=== PATIENT | female | born 1960 | race Caucasian/White ===

== ENCOUNTER → 2017-09-24 | Emergency (ER) | payer BC ==
[~2017-09-24] VITALS: Ht 175.3 cm; Wt 145.1 kg
[~2017-09-24] MED LIST: DEXAMETHASONE SOD PHOS 10 MG/1 ML VIAL INJ ONE; FAMOTIDINE 20 MG TAB PO ONE
== END | disposition home or self-care (01) ==
LOC: ER 13:15
DX: L50.9 Urticaria, unspecified (principal); I10 Essential (primary) hypertension
CPT/HCPCS: 99282; J1100

== ENCOUNTER 2019-04-30 07:13 | Observation (INO) | payer BC ==
[~2019-04-30] VITALS: Ht 175.3 cm; Wt 137.4 kg
[~2019-04-30 07:13] MED LIST changes: +BACITRACIN 50,000 UNIT VIAL ONE; -DEXAMETHASONE SOD PHOS 10 MG/1 ML VIAL INJ ONE; -FAMOTIDINE 20 MG TAB PO ONE; +LEXAPRO10 MG PO; +NIFEDIPINE ER30 MG PO; +SODIUM CHLORIDE 0.9% 500ML 500 ML ONE; +TRANEXAMIC ACID 1,000 MG/10 ML ML ONE; +ULTRAM50 MG PO; +VANCOMYCIN HCL 1,000 MG ONE
--- OUTSIDE RECORDS SUMMARY | 2019-04-30 07:16 | XMS REPORT | Clinical Summary ---
Author Author [facility] Organization [facility] Address Unknown Phone Unavailable Care Team Providers Care Obstetrician/Gynecologist Name Role Phone Saúl Diaz MD PCP Allergies Not on File Medications Not on file Active Problems Not on file Encounters Care Team Description Date Type Specialty Liat Dominguez MD Screening breast examination 04/03/2019 Procedure visit Radiology Liat Dominguez MD Screening breast examination (Primary Dx) 03/19/2019 Transcribe Access Orders after 04/29/2018 Social History Date Tobacco Use Types Packs/Day Years Used Never Assessed Sex Assigned at Date Recorded Not on file Industry Job Start Date Occupation Not on file Not on file Not on file Travel End Travel History Travel Start No recent travel history available. Last Filed Vital Signs Not on file Plan of Treatment Health Maintenance Due Date Last Done Comments COLONOSCOPY SCREENING 2011 SHINGLES VACCINES (#1) 2011 INFLUENZA VACCINE 04/11/2019 BREAST CANCER SCREENING 04/03/2021 04/03/2019, 03/08/2018 Procedures Comments Procedure Name Priority Date/Time Associated Diagnosis MAMMO BREAST SCREEN Routine 04/03/2019 Screening breast TOMOSYNTHESIS BILATERAL 10:45 AM CDT examination after 04/29/2018 Results * Mammo Breast Screen Tomosynthesis Bilateral (04/03/2019 10:45 AM CDT) Specimen Narrative Performed At EXAMINATION:MAMMO BREAST SCREEN TOMOSYNTHESIS BILATERAL04/03/2019 [email or web address] Computer-assisted detection was utilized in the interpretation of this exam. COMPARISONS:02/28/2018 dating back to 10/28/2018 INDICATION:58 year-old female who presents for annual evaluation. FINDINGS: There is scattered fatty and fibroglandular tissue. There are no suspicious mammographic findings. IMPRESSION: No mammographic evidence of malignancy. In the absence of any clinical change, continued routine annual mammographic surveillance per ACR guidelines is recommended. BI-RADS Category 2: BENIGN. 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
[2019-04-30] MEDS ORDERED: CELECOXIB 200 MG CAP ONE (07:28)
[2019-04-30] MEDS ORDERED: GABAPENTIN 300 MG CAP ONE (07:29)
[2019-04-30] MEDS ORDERED: CEFAZOLIN SOD 1 GM/NS 50ML 100 ML IV ONE (07:29)
[2019-04-30] MEDS ORDERED: DEXAMETHASONE SOD PHOS 10 MG/1 ML VIAL ONE (07:29)
[2019-04-30] MEDS ORDERED: ROPIVACAINE 246.25 MG, EPINEPHRINE HCL 1:1000 1ML 0.5 MG, CLONIDINE HCL 0.08 MG, KETORO... INJ ONE ×5 (07:30)
[2019-04-30] MEDS ORDERED: DIPHENHYDRAMINE HCL INJ 50 MG/ML VIAL IM/IV PRN (11:30)
[2019-04-30] MEDS ORDERED: HYDROCODONE/APAP 7.5MG-325MG 1 EA TAB PO PRN (11:30)
[2019-04-30] MEDS ORDERED: HYDROCODONE/APAP 5MG-325MG TAB PO PRN (11:30)
[2019-04-30] MEDS ORDERED: ZOLPIDEM TARTRATE 5 MG TAB PO PRN (11:30)
[2019-04-30] MEDS ORDERED: PROMETHAZINE HCL (IM) 25 MG/ML VIAL INJ PRN (11:30)
[2019-04-30] MEDS ORDERED: DOCUSATE SODIUM 100 MG CAP PO PRN (11:30)
[2019-04-30] MEDS ORDERED: ACETAMINOPHEN 650 MG SUPP PR PRN (11:30)
[2019-04-30] MEDS ORDERED: KETOROLAC TROMETHAMINE 30 MG/ML VIAL IV PRN (11:30)
[2019-04-30] MEDS ORDERED: ONDANSETRON HCL INJ 2MG/ML 2ML 2 MG/ML VIAL IV PRN (11:30)
[2019-04-30] MEDS: ACETAMINOPHEN 1000 MG/100 ML IV SCH ×3 (12:00→23:15)
--- OUTSIDE RECORDS SUMMARY | 2019-04-30 12:09 | XMS REPORT | Clinical Summary ---
Author Author [facility] Organization [facility] Address Unknown Phone Unavailable Care Team Providers Care Assembler Garment Form Name Role Phone Saúl Diaz MD PCP [...] Performed At EXAMINATION:MAMMO BREAST SCREEN TOMOSYNTHESIS BILATERAL04/03/2019 [employer] Computer-assisted detection was utilized in the interpretation [...] Organization Address City/State/Zipcode Phone Number [facility] [address] [place] [address] after 04/29/2018 Insurance Type Payer Benefit Subscriber ID Effective Phone Address Plan / Dates Group PPO BCBS BCBS xxxxxxxxxxxx 2017-P CHOICE anetaent PPO/ALEX VILLANUEVA PPO Advance Directives For more information, please contact: [phone] 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
--- NOTE | 2019-04-30 13:03 | Diagnostic Imaging Report ---
Left knee, 2 views. History: Post op. Findings: Status post total left knee arthroplasty with prosthetic components in anatomic alignment. Overlying post-surgical air and skin laura are present. IMPRESSION: Status post left knee replacement in anatomic position. Signed by: Gil Olvera on 04/30/2019 12:59 PM
--- NOTE | 2019-04-30 13:06 | NUR ---
RECEIVED TO RM [id number] NO DISTRESS NOTED, UPDATED ON POC VOICED UNDERSTANDING, DENIES PAIN AT THIS TIME, L FA 20G , DSG TO LEFT KNEE C/D/I,NO OTHER CO VOICED CALL LIGHT IN REACH WILL CONTINUE TO MONITOR
[2019-04-30 13:13] VITALS: BP 121/62
[2019-04-30 13:20] VITALS: BP 141/63
[2019-04-30] MEDS ORDERED: ROPIVACAINE 0.5% 5 MG/ML 30 ML SDV ONE (14:01)
[2019-04-30] MEDS ORDERED: LIDOCAINE 2%/ EPINEPHRINE 20ML MDV ONE (14:01)
--- NOTE | 2019-04-30 14:13 | NUR ---
Pt sitting up in bed, voided in bed malcolm. PT at bedside.
--- NOTE | 2019-04-30 15:55 | NUR ---
DR GOODSON OFFICE PREARRANGED FOLLOWING DISCHARGE PLAN OF: HOME HEALTH WITH HOME CARE PROVIDERS [phone] CONFIRMED WITH [facility]. DME 3 IN ONE COMMODE. AND ROLLING WALKER WITH WHEELS. PROVIDED BY [employer] [phone] [facility] DELIVERED 04/30/2019
--- NOTE | 2019-04-30 16:10 | NUR ---
L FA 20G IV INFILTRATED REMOVED COVERED WITH 2X2 AND TAPE, L HAND 20G X 1 STICK TOLERATED WELL,
[2019-04-30 16:22] VITALS: BP 141/67
[2019-04-30] MEDS ORDERED: PROMETHAZINE 12.5MG/ NACL 0.9% 50 ML IV PRN (16:30)
[2019-04-30] MEDS ORDERED: CELECOXIB 200 MG CAP PO SCH (17:00)
[2019-04-30] MEDS: ASPIRIN 325 MG TAB PO SCH (17:34)
[2019-04-30] MEDS: CEFAZOLIN SOD 1 GM/NS 50ML 50 ML IV SCH (17:34)
[2019-04-30] MEDS: SODIUM CHLORIDE 0.9% 1000ML 1,000 ML IV SCH ×2 (17:34→21:16)
--- NOTE | 2019-04-30 17:36 | NUR ---
spoke with Dr. Bartholomew and informed him that the pt reported allergy to Celebrex. he ordered to d/c med; allergy reported on pt.
[2019-04-30] MEDS ORDERED: ACETAMINOPHEN 1000 MG/100 ML IV ONE (18:32)
[2019-04-30] MEDS ORDERED: PROPOFOL IV EMULSION 10 MG/ML 20 ML VIAL ONE (18:32)
[2019-04-30] MEDS ORDERED: ONDANSETRON HCL INJ 2MG/ML 2ML 2 MG/ML VIAL ONE (18:32)
[2019-04-30] MEDS ORDERED: LIDOCAINE HCL 2% LOCAL INJ 5 ML SDV VIAL INJ ONE (18:32)
[2019-04-30] MEDS ORDERED: SEVOFLURANE INHAL SOLN 250 ML PEN BTL ONE (18:32)
[2019-04-30] MEDS ORDERED: DEXAMETHASONE SOD PHOS INJ 4 MG/ML VIAL ONE (18:32)
[2019-04-30] MEDS ORDERED: FENTANYL CITRATE/PF 100MCG/2 ML INJ ONE (18:46)
[2019-04-30] MEDS ORDERED: MIDAZOLAM HCL 2 MG/2 ML VIAL ONE (18:46)
[2019-04-30] MEDS ORDERED: MORPHINE SULFATE INJ 10 MG/ML ONE (18:46)
[2019-04-30] MEDS ORDERED: KETAMINE HCL INJ 50 MG/ML 10 ML VIAL ONE (18:46)
--- NOTE | 2019-04-30 19:09 | NUR ---
report given to oncoming shift manager nurse. pt resting in bed, call light within reach, in stable condition.
--- NOTE | 2019-04-30 19:31 | NUR ---
Bed side shift report taken from morning staff Sharonda.patient is lyeing in the bed.left knee dressing dry.plexi pump is in place.stable condition.
[2019-04-30 20:00] VITALS: BP 156/71
--- NOTE | 2019-04-30 20:14 | NUR ---
Assessment done.no resp.distress.no pain voiced.tolerates the diet.voided.cpm applied @ flexion degree 40.tolerates.bed locked and in lowest position.phone and call light within reach.instructed to call for assistance as needed.
[2019-04-30 20:57] VITALS: BP 156/71
[2019-04-30] MEDS ORDERED: ESCITALOPRAM OXALATE 10 MG TAB PO SCH (21:00)
--- NOTE | 2019-04-30 22:18 | NUR ---
TOOK OFF CPM.PT TOLERATED WELL.
[2019-05-01] VITALS: BP 112/53
[2019-05-01] MEDS: CEFAZOLIN SOD 1 GM/NS 50ML 50 ML IV SCH ×2 (00:14→08:10)
--- NOTE | 2019-05-01 00:51 | NUR ---
Patient using own c pap and sleeping.bed in lowest position.phone and call light within reach.instructed to call for assistance as needed.
[2019-05-01 04:00] VITALS: BP 142/74
--- NOTE | 2019-05-01 04:46 | Consultation ---
DATE OF CONSULTATION: REASON FOR CONSULTATION: Postop medical management. HISTORY OF PRESENT ILLNESS: The patient is a 59-year-old lady, status post left knee arthroplasty for end-stage osteoarthritis. She is doing very well postoperatively with minimal pain in the left knee. She denies any chest pain, fever, chills, nausea, vomiting, headache, or shortness of breath. PAST MEDICAL HISTORY: Significant for hypertension, sleep apnea, and osteoarthritis. MEDICATIONS: See MAR. ALLERGIES: CODEINE AND CELEBREX. SOCIAL HISTORY: She is . Works full-time and she is positive cigarette abuser about a half pack per day and denies any alcohol use. FAMILY HISTORY: Unremarkable. PHYSICAL EXAMINATION: VITAL SIGNS: Temperature is 99.2, pulse 92, blood pressure 112/52, and sats 100% on room air. GENERAL: She is no apparent distress, lying in bed. NECK: Supple. No lymphadenopathy. LUNGS: Clear to auscultation bilaterally. CARDIOVASCULAR: Regular rate and rhythm. ABDOMEN: Good bowel sounds. Soft and nontender. EXTREMITIES: No clubbing or cyanosis. Left knee is bandaged with no seepage. NEUROLOGIC: Nonfocal. ASSESSMENT AND PLAN: 1. Status post left total knee arthroplasty. Continue with postoperative care. 2. Pain, continue with current care since her pain is minimal. 3. Sleep apnea. Continue with BiPAP. 4. Hypertension. Continue with her medication and monitor. 5. Anemia check a CBC. Please see hospital chart for full details. MD ARVIN Pearson/MOHINDER /[id number]
[2019-05-01] MEDS: ACETAMINOPHEN 1000 MG/100 ML IV SCH (05:32)
--- NOTE | 2019-05-01 06:30 | NUR ---
on cpm @ flexion degree 45.
[2019-05-01 06:46] LABS: HEMOGLOBIN 12.9 g/dL (12.0-16.0)
--- NOTE | 2019-05-01 07:00 | NUR ---
bedside report received pt in stable condition, denies pain at this time, cpm in place, dsg to left knee c/d/i, no other co voiced call light in reach will continue to monitor
--- NOTE | 2019-05-01 07:10 | NUR ---
Bed side shift report given to the oncoming rn.walking rounds done.
[2019-05-01 07:21] VITALS: BP 150/70
[2019-05-01 08:16] VITALS: BP 150/70
--- NOTE | 2019-05-01 08:17 | Operative Report ---
DATE OF PROCEDURE: 04/30/2019 SURGEON: uYsuf Bartholomew MD MANAGEMENT SUPERVISOR: Merrill Pinto. PREOPERATIVE DIAGNOSIS: Osteoarthritis, left knee. POSTOPERATIVE DIAGNOSIS: Osteoarthritis, left knee. PROCEDURE: Left total knee arthroplasty * added complexity secondary to BMI of 43. INDICATIONS: The patient is a 59-year-old woman, who has end-stage arthritis of her left knee. She has failed conservative management and would like to proceed with a left total knee replacement. The risks and benefits were reviewed on a number of occasions in the office. My concerns about her weight have been explained. She states she has lost 68 pounds. She feels further weight loss is highly challenging until she can be more mobile. She understands there is an increased risk of perioperative complications due to her body mass index. She accepts these risks and wishes to proceed. PROCEDURE IN DETAIL: The patient was brought to the operating room and placed under general anesthetic. She received prophylactic antibiotics, a regional block and tranexamic acid in the holding area. Her left lower extremity was prepped and draped in a sterile manner. Throughout positioning and prepping, added time and personnel was necessary due to the patient's large body mass. A preoperative time-out was performed. The extremity was carefully exsanguinated. A proximal tourniquet was inflated to 350 mmHg. A slightly more extensile incision than usual was made over the anterior aspect of the right knee. Deep subcutaneous adipose tissue was encountered. Hemostasis was obtained with electrocautery. Self-retaining retractors were placed. A medial parapatellar arthrotomy was performed. Clear synovial fluid was removed from the joint. Soft tissue releases were performed to bring the knee up into flexion with the patella everted. Once again, added challenges were encountered due to the patient's altered surgical field. The anterior cruciate ligament was sacrificed. A [employer] Persona medial congruent knee system was used throughout the case. Marginal osteophytes and meniscal remnants were removed. An extramedullary cutting guide was used to resect the proximal tibia. Much of the cut had to be performed free hand after making the initial alignment cut. I could not place the cutting jig adjacent to the bone due to the abundant subcutaneous adipose. The tibial base plate was a size E. The central fin punch was drilled and impacted. Attention was directed towards the distal femur. An intramedullary cutting guide was used to resect the distal femur in 5 degrees of valgus and rotation referencing off a combination of landmarks including Whitesides line, the epicondylar axis and the posterior condyles. The femoral component was a size #9. The anterior and posterior cuts were made. Trial reductions were performed. An 11 mm medial congruent tibial insert provided appropriate soft tissue balancing in full extension and 90 degrees of flexion. Large marginal osteophytes were then removed from the patella. The patella was resurfaced with a 32 mm x 8.5 mm patellar button. The thickness was checked before and after and was right around 22 mm. Patellar tracking was noted to be concentric. The trial implants were all removed. The knee was thoroughly irrigated with a shower tip pulsatile lavage. All bone cuts had been irrigated with a spray mixture of diluted polymyxin and vancomycin spray. A 100 mL premixed pericapsular YANELI injection was placed into the surrounding soft tissue. The knee was further irrigated while a single mix of Palacos cement preloaded with antibiotics was prepared on the back table. The components were cemented into place. Care was taken to remove extravasated cement. The wound was further irrigated while the cement cured. The arthrotomy was then carefully closed with interrupted #1 Ethibond. The knee was put through flexion and extension to ensure a secure closure and appropriate patellar tracking. The skin was carefully closed with subcuticular Vicryl and laura. A sterile Aquacel bandage and a compression wrap were applied. The patient was extubated and transported to the recovery room in stable condition. Blood loss was minimal. All needle and sponge counts were correct. Yusuf Bartholomew MD DR/MOHINDER /[id number]
[2019-05-01] MEDS ORDERED: NON-FORMULARY MEDICATION (Nifedipine (Nifedipine Er) 1 TAB) PO SCH (09:00)
[2019-05-01] MEDS ORDERED: NIFEDIPINE CR 30 MG TAB PO SCH (09:00)
[2019-05-01] MEDS: ASPIRIN 325 MG TAB PO SCH (09:20)
[2019-05-01 11:30] VITALS: BP 167/72
[2019-05-01] MEDS ORDERED: ACETAMINOPHEN 1000 MG/100 ML IV PRN (11:30)
== END 2019-05-01 11:31 | disposition home health service (06) ==
LOC: OR 07:13 → PACU V 11:19 → MED/SURG 13:16
PROVIDERS: ADMIT Specialist; ATTEND Specialist
DX: M17.12 Unilateral primary osteoarthritis, left knee (principal); G47.33 Obstructive sleep apnea (adult) (pediatric); I10 Essential (primary) hypertension; K21.9 Gastro-esophageal reflux disease without esophagitis; E66.01 Morbid (severe) obesity due to excess calories; Z68.41 Body mass index [BMI] 40.0-44.9, adult; F17.210 Nicotine dependence, cigarettes, uncomplicated; Z88.5 Allergy status to narcotic agent; D64.9 Anemia, unspecified
CPT/HCPCS: 27447; 36415; 73560; 85014; 85018; 86850; 86900; 86920; 97110; 97116; 97161; 97530; G0378 ×2; J0131 ×2; J0171; J0690 ×2; J1100 ×2; J1885; J2001 ×2; J2250; J2270; J2405; J2704; J2795; J3010; J3370; J7030; J7040; C1713; C1776

== ENCOUNTER 2019-07-08 08:20 | Observation (INO) | payer BC ==
[2019-07-05 09:41] LABS: BASOPHILS % 0.7 % (0.0-1.0); EOSINOPHILS # (AUTO) 0.1 (0.0-0.4); EOSINOPHILS % 2.6 % (0.0-6.0); HEMATOCRIT 41.6 % (34.2-44.1); HEMOGLOBIN 13.8 g/dL (12.0-16.0); LYMPHOCYTES # (AUTO) 1.7 (1.0-3.2); LYMPHOCYTES % 31.1 % (18.0-39.1); MEAN CORPUSCULAR HEMOGLOBIN 30.2 pg (28-32); MEAN CORPUSCULAR HGB CONC 33.2 g/dL (31-35); MONOCYTES # (AUTO) 0.5 (0.2-0.8); MONOCYTES % 9.1 % (4.4-11.3); NEUTROPHILS % 55.8 % (38.7-80.0); PLATELET COUNT 206 x10e3/uL (140-360); RED BLOOD COUNT 4.57 x10e6/uL (3.6-5.1); RED CELL DISTRIBUTION WIDTH 12.5 % (11.7-14.4)
--- NOTE | 2019-07-05 10:00 | Diagnostic Imaging Report ---
EXAMINATION: CHEST 2 VIEWS INDICATION: Pre-operative COMPARISON: None FINDINGS: LINES/TUBES:None LUNGS:The lungs are well-inflated. No focal consolidation or pulmonary edema. PLEURA:No pleural effusion or pneumothorax. MEDIASTINUM:The cardiomediastinal silhouette appears normal in size and shape. BONES/SOFT TISSUES:No acute osseous injury. ABDOMEN:No free air under the diaphragm. Status post cholecystectomy. IMPRESSION: No focal pneumonia or pulmonary edema. Signed by: Riccardo Du MD on 07/05/2019 9:56 AM
[~2019-07-08] VITALS: Ht 175.3 cm; Wt 149.7 kg
[~2019-07-08 08:20] MED LIST changes: -BACITRACIN 50,000 UNIT VIAL ONE; +ROPIVACAINE 246.25 MG, EPINEPHRINE HCL 1:1000 1ML 0.5 MG, CLONIDINE HCL 0.08 MG in SODI... INJ ONE; -SODIUM CHLORIDE 0.9% 500ML 500 ML ONE; -TRANEXAMIC ACID 1,000 MG/10 ML ML ONE; -VANCOMYCIN HCL 1,000 MG ONE
--- OUTSIDE RECORDS SUMMARY | 2019-07-08 08:29 | XMS REPORT ---
Author Author [facility] Address Unknown Phone Unavailable Care Team Providers Care Desk Representative Name Role Phone HUSSAIN HIDALGO Unavailable Unavailable Problems This patient has no known problems. Allergies, Adverse Reactions, Alerts This patient has no known allergies or adverse reactions. Medications This patient has no known medications. Results Test Description Test Time Test Comments Text Results Atomic Results Result Comments CHEST 2 VIEWS 2019-07-05 09:55:00 [place] [address] Patient Name: ALEX HUNG MR #: [id number] : 1960 Age/Sex: 59/F Req #: [id number] [facility] Physician: Ordered by: HUSSAIN HIDALGO MD Report #: [id number] Location: OR Room/Bed: Procedure: [id number] DX/CHEST 2 VIEWS Exam Date: 07/05/19 Exam Time: 919 REPORT STATUS: Signed EXAMINATION: CHEST 2 VIEWS INDICATION: Pre-operative COMPARISON: None FINDINGS: LINES/TUBES:None LUNGS:The lungs are well-inflated. No focal consolidation or pulmonary edema. PLEURA:No pleural effusion or pneumothorax. MEDIASTINUM:The cardiomediastinal silhouette appears normal in size and shape. BONES/SOFT TISSUES:No acute osseous injury. ABDOMEN:No free air under the diaphragm. Status post cholecystectomy. IMPRESSION: No focal pneumonia or pulmonary edema. Signed by: Monica Amaya MD on 07/05/2019 9:56 AM Dictated By: MONICA AMAYA MD 5 Transcribed By: ADAMS on 07/05/19955 COPY TO: HUSSAIN HIDALGO MD KNEE LEFT 1-2 VIEWS 2019-04-30 12:59:00 [place] [address] Patient Name: ALEX HUNG MR #: [id number] : 1960 Age/Sex: 59/F Req #: [id number] Adm Physician: HUSSAIN HIDALGO MD Ordered by: HUSSAIN HIDALGO MD Report #: [id number] Location: PACU Room/Bed: PACU-1 Procedure: [id number] DX/KNEE LEFT 1-2 VIEWS Exam Date: Exam Time: REPORT STATUS: Signed Left knee, 2 views. History: Post op. Findings: Status post total left knee arthroplasty with prosthetic components in anatomic alignment. Overlying post-surgical air and skin laura are present. IMPRESSION: Status post left knee replacement in anatomic position. Signed by: Gil Olvera on 04/30/2019 12:59 PM Dictated By: GIL OLVERA MD 59 Transcribed By: ADAMS on 04/30/191258 COPY TO: HUSSAIN HIDALGO MD
[2019-07-08] MEDS ORDERED: GABAPENTIN 300 MG CAP ONE (09:04)
[2019-07-08] MEDS ORDERED: CEFAZOLIN SOD 1 GM/NS 50ML 100 ML IV ONE (09:04)
[2019-07-08] MEDS ORDERED: DEXAMETHASONE SOD PHOS 10 MG/1 ML VIAL ONE (09:05)
[2019-07-08] MEDS ORDERED: BACITRACIN 50,000 UNIT VIAL ONE (09:43)
[2019-07-08] MEDS ORDERED: SODIUM CHLORIDE 0.9% 500ML 500 ML ONE (09:43)
[2019-07-08] MEDS ORDERED: VANCOMYCIN HCL 1,000 MG ONE (09:43)
[2019-07-08] MEDS ORDERED: TRANEXAMIC ACID 1,000 MG/10 ML ML ONE (09:43)
[2019-07-08] MEDS ORDERED: ACETAMINOPHEN 1000 MG/100 ML 100 ML IV ONE (11:30)
[2019-07-08] MEDS ORDERED: SODIUM CHLORIDE 0.9% 1000ML 1,000 ML IV SCH (12:13)
[2019-07-08] MEDS ORDERED: DIPHENHYDRAMINE HCL INJ 50 MG/ML VIAL IM/IV PRN (12:15)
[2019-07-08] MEDS ORDERED: HYDROCODONE/APAP 5MG-325MG TAB PO PRN (12:15)
[2019-07-08] MEDS ORDERED: ZOLPIDEM TARTRATE 5 MG TAB PO PRN (12:15)
[2019-07-08] MEDS ORDERED: ACETAMINOPHEN 650 MG SUPP PR PRN (12:15)
[2019-07-08] MEDS ORDERED: PROMETHAZINE HCL (IM) 25 MG/ML VIAL INJ PRN (12:15)
[2019-07-08] MEDS ORDERED: ONDANSETRON HCL INJ 2MG/ML 2ML 2 MG/ML VIAL IV PRN (12:15)
[2019-07-08] MEDS ORDERED: KETOROLAC TROMETHAMINE 30 MG/ML VIAL IV PRN (12:15)
[2019-07-08] MEDS ORDERED: DOCUSATE SODIUM 100 MG CAP PO PRN (12:15)
[2019-07-08] MEDS ORDERED: FENTANYL CITRATE/PF 100MCG/2 ML INJ ONE ×2 (12:48→17:59)
--- NOTE | 2019-07-08 13:09 | Diagnostic Imaging Report ---
EXAMINATION: KNEE RIGHT 1-2 VIEWS INDICATION: Postoperative COMPARISON: None FINDINGS: Portable AP and lateral images of the right knee demonstrate immediate postoperative findings of right total knee replacement. Alignment is anatomic. No unexpected fracture. Postoperative subcutaneous soft tissue emphysema. Surgical skin laura in place. Small joint effusion. IMPRESSION: Anatomic alignment status post right total knee replacement. Signed by: Riccardo Du MD on 07/08/2019 1:06 PM
[2019-07-08] MEDS ORDERED: HYDROMORPHONE 1MG/1ML INJ ONE ×2 (13:38→13:59)
[2019-07-08] MEDS ORDERED: ROPIVACAINE 0.5% 5 MG/ML 30 ML SDV ONE (13:51)
[2019-07-08] MEDS ORDERED: HYDROCODONE/APAP 7.5MG-325MG 1 EA TAB ONE (16:50)
[2019-07-08] MEDS ORDERED: CELECOXIB 100 MG CAP PO SCH (17:00)
[2019-07-08] MEDS ORDERED: LABETALOL HCL 5 MG/ML 20ML VIAL ONE (17:18)
[2019-07-08] MEDS ORDERED: LIDOCAINE HCL 2% LOCAL INJ 5 ML SDV VIAL INJ ONE (17:18)
[2019-07-08] MEDS ORDERED: ACETAMINOPHEN 1000 MG/100 ML IV ONE (17:18)
[2019-07-08] MEDS ORDERED: PROPOFOL IV EMULSION 10 MG/ML 20 ML VIAL ONE (17:18)
[2019-07-08] MEDS ORDERED: ONDANSETRON HCL INJ 2MG/ML 2ML 2 MG/ML VIAL ONE (17:18)
[2019-07-08] MEDS ORDERED: SEVOFLURANE INHAL SOLN 250 ML PEN BTL ONE (17:18)
[2019-07-08] MEDS ORDERED: KETAMINE HCL INJ 50 MG/ML 10 ML VIAL ONE (17:59)
[2019-07-08] MEDS ORDERED: MIDAZOLAM HCL 2 MG/2 ML VIAL ONE (17:59)
--- NOTE | 2019-07-08 18:32 | NUR ---
Received patient from PACU. Right knee dressing clean intact, no bleeding noted. Pulses palpated to bilateral foot. Respiration even and unlabored without SOB. Call light in reach.
--- NOTE | 2019-07-08 18:46 | Operative Report ---
DATE OF PROCEDURE: 07/08/2019 SURGEON: Yusuf Bartholomew MD HAND COOPER HELPER: Gildardo Baker, certified PA. PREOPERATIVE DIAGNOSIS: Osteoarthritis, right knee. POSTOPERATIVE DIAGNOSIS: Osteoarthritis, right knee. PROCEDURE: Right total knee arthroplasty, * added complexity secondary to BMI over 43. INDICATIONS: The patient is a 59-year-old lady with severe arthritis in her right knee. She has failed conservative management and would like to proceed with a right total knee replacement. She recently had her left knee replaced and she is quite happy with her progress. The added challenges both for the surgeon and for her in her recovery due to her BMI of 43 have been thoroughly discussed. The added risks for perioperative complications has been explained. She states she understands and wishes to proceed. PROCEDURE IN DETAIL: The patient was brought to the operating room and placed under general anesthetic. She received a regional block, prophylactic antibiotics and tranexamic acid in the holding area. Her right lower extremity was prepped and draped in a sterile manner. A preoperative time-out was performed. Added time and personnel were necessary due to the patient's BMI of 43 and her weight of just under 300 pounds. The extremity was exsanguinated and a proximal tourniquet was inflated to 350 mmHg. An anterior approach with a slightly more extensile incision was made. Care was taken to avoid extensive subcutaneous dissection to diminish the potential for space. Abundant subcutaneous adipose tissue was encountered. A medial parapatellar arthrotomy was performed. Blood-tinged synovial fluid was removed from the joint. Soft tissue releases were performed to carefully bring the knee up into flexion with the patella everted. Additional challenges were encountered due to the altered surgical field in the size of her leg. Meniscal remnants and marginal osteophytes were removed. The cruciate ligaments were sacrificed. Throughout the case, a [employer] Persona Knee System was used. An extramedullary cutting guide was used to resect the proximal tibia. The cut was referenced off the medial compartment. The tibial slope was dialed in to match the existing slope. The tibial base plate was sized at E size component. The central fin punch was drilled and impacted. Attention was directed towards the distal femur. An intramedullary cutting guide was used to resect the distal femur in 5 degrees of valgus and rotation, referencing off a combination of landmarks including Whitesides line, the epicondylar axis and the posterior condyles. Like the left side, the femoral component was a size 9. The anterior and posterior cuts were made. A trial reduction was performed. An 11 mm medial congruent insert provided appropriate soft tissue balancing in both full extension and 90 degrees of flexion. The patella was resurfaced with a 32 mm patellar button. The thickness was checked before and after and was right around 23 mm. Patellar tracking was noted to be concentric. The trial implants were all removed. A 100 mL premixed pericapsular YANELI injection was placed into the surrounding soft tissue. The knee was thoroughly irrigated with a shower tip pulsatile lavage. All bone cuts had been irrigated with a diluted mixture of polymyxin and vancomycin spray. The components were cemented into place using a single mix of Palacos cement preloaded with antibiotics. Care was taken to remove extravasated cement. The wound was further irrigated while the cement cured. The arthrotomy was then closed over 500 mg of vancomycin powder with #1 Ethibond. The knee was put through flexion and extension to ensure a secure closure of the arthrotomy. The skin was then carefully closed with subcuticular Vicryl and laura. A sterile Aquacel bandage was applied. The patient was extubated and transported to the recovery room in stable condition. Blood loss was minimal. All needle and sponge counts were correct. Yusuf Bartholomew MD DR/MOHINDER /[id number]
[2019-07-08] MEDS ORDERED: TRAMADOL HCL 50 MG TAB PO PRN (19:00)
--- NOTE | 2019-07-08 19:20 | NUR ---
Received patient awake on bed, not in distress, no complaints of pain at this time, Right Lower extremity wrapped with RAFAEL bandage, call light within easy reach, advised patient to call anytime when needed, will continue to monitor
[2019-07-08] MEDS: ASPIRIN 325 MG TAB PO SCH (20:48)
[2019-07-08] MEDS: CEFAZOLIN SOD 1 GM/NS 50ML 50 ML IV SCH (20:48)
[2019-07-08] MEDS: ACETAMINOPHEN 1000 MG/100 ML IV SCH (20:49)
[2019-07-08 21:00] VITALS: BP 141/73
[2019-07-08] MEDS ORDERED: ESCITALOPRAM OXALATE 10 MG TAB PO SCH (21:00)
[2019-07-09 00:02] VITALS: BP 149/80
[2019-07-09] MEDS: ACETAMINOPHEN 1000 MG/100 ML IV SCH ×3 (01:09→11:11)
[2019-07-09] MEDS: CEFAZOLIN SOD 1 GM/NS 50ML 50 ML IV SCH ×2 (03:35→11:12)
[2019-07-09] MEDS: HYDROCODONE/APAP 7.5MG-325MG 1 EA TAB PO PRN ×3 (03:54→11:12)
[2019-07-09 04:00] VITALS: BP 157/91
[2019-07-09 06:31] LABS: HEMATOCRIT 39.1 % (34.2-44.1); HEMOGLOBIN 12.5 g/dL (12.0-16.0)
--- NOTE | 2019-07-09 07:13 | NUR ---
walking rounds done, patient is in good condition
--- NOTE | 2019-07-09 07:15 | NUR ---
Received patient lying in bed with eyes open. Respiration even and unlabored without SOB. CPM to right knee in placed. Call light in reach.
[2019-07-09] MEDS: ASPIRIN 325 MG TAB PO SCH (07:59)
[2019-07-09 08:09] VITALS: BP 155/107
[2019-07-09] MEDS ORDERED: NON-FORMULARY MEDICATION (Nifedipine (Nifedipine Er) 1 TAB) PO SCH (09:00)
[2019-07-09] MEDS ORDERED: NIFEDIPINE CR 30 MG TAB PO SCH (09:00)
--- NOTE | 2019-07-09 09:18 | NUR ---
DR GOODSON OFFICE PREARRANGED FOLLOWING DISCHARGE PLAN OF: RETURNING HOME [address] [place] [address] HOME HEALTH WITH HOME CARE PROVIDERS CONFIRMED WITH [facility] [phone] PT ALREADY HAS DME THAT WAS PROVIDED BY [facility] [employer] [phone]
[2019-07-09 09:30] VITALS: BP 155/107
--- NOTE | 2019-07-09 11:40 | Consultation ---
DATE OF CONSULTATION: REASON FOR CONSULTATION: Postop medical management. HISTORY OF PRESENT ILLNESS: The patient is a 59-year-old lady, status post right total knee arthroplasty. She is doing well postoperatively with minimal pain of the right knee. REVIEW OF SYSTEMS: She denies any fever, chills, nausea, vomiting, headache, shortness of breath, or dizziness. PAST MEDICAL HISTORY: Significant for hypertension. MEDICATIONS: 1. Hydrocodone. 2. Nifedipine. ALLERGIES: CODEINE. FAMILY HISTORY: Noncontributory. SOCIAL HISTORY: She is an everyday smoker, less than half a pack a day. 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 Denies alcohol use. PHYSICAL EXAMINATION: VITAL SIGNS: pulse 60, blood pressure 149/80, sats 90% on room air. GENERAL: She is in no apparent distress, lying in bed, wearing BiPAP for sleep apnea. NECK: Supple. CARDIOVASCULAR: Regular rate and rhythm. LUNGS: Clear to auscultation bilaterally. ABDOMEN: Good bowel sounds. Soft and nontender. EXTREMITIES: No clubbing or cyanosis. NEUROLOGIC: Nonfocal. ASSESSMENT AND PLAN: 1. Right knee pain, status post arthroplasty. Continue with postoperative care and physical therapy and pain control. 2. Anemia. Check a CBC. 3. Sleep apnea. Continue with her BiPAP. 4. Hypertension. Restart blood pressure medicines at the time of discharge. Please see hospital chart for full details. MD ARVIN Pearson/MOHINDER /[id number]
[2019-07-09 11:56] VITALS: BP 145/84
[2019-07-09] MEDS ORDERED: ASPIR 8181 MG PO (12:04)
[2019-07-09] MEDS ORDERED: ACETAMINOPHEN 1000 MG/100 ML IV PRN (12:15)
--- NOTE | 2019-07-09 12:42 | NUR ---
PIV to Right hand discontinued. Catheter intact,no bleeding noted. Patient is to D/C to home today as ordered. Transported via wheelchair to private vehicle. Personal belongings carried by family member.
== END 2019-07-09 12:42 | disposition home health service (06) ==
LOC: OR 08:20 → PACU V 12:16 → MED/SURG 18:33
PROVIDERS: ADMIT Specialist; ATTEND Specialist
DX: M17.11 Unilateral primary osteoarthritis, right knee (principal); K21.9 Gastro-esophageal reflux disease without esophagitis; E66.01 Morbid (severe) obesity due to excess calories; I10 Essential (primary) hypertension; G47.33 Obstructive sleep apnea (adult) (pediatric); F41.9 Anxiety disorder, unspecified; D64.9 Anemia, unspecified; G47.30 Sleep apnea, unspecified; Z88.5 Allergy status to narcotic agent; Z68.42 Body mass index [BMI] 45.0-49.9, adult; Z88.8 Allergy status to other drugs, medicaments and biological substances; F17.210 Nicotine dependence, cigarettes, uncomplicated; Z96.652 Presence of left artificial knee joint
CPT/HCPCS: 27447; 36415 ×2; 71046; 73560; 85014; 85018; 85025; 86850; 86900; 86920; 97116 ×2; 97161; 97530; C1713; C1776 ×3; G0378 ×2; J0131 ×2; J0171; J0690 ×2; J1100; J1170; J1885; J2001; J2250; J2405; J2704; J2795; J3010; J3370; J3490; J7040